=== PATIENT | female | born 1985 | race Two or more races ===

== ENCOUNTER 2017-06-11 15:17 | Outpatient (CLI) | payer OTHER ==
[~2017-06-11 15:17] MED LIST: KETO10TA2 PO; ULTRACET PO
== END 2017-06-11 15:36 | disposition home or self-care (01) ==
LOC: SONOGRAMA 15:17 → MAMO-SONO 06-17 13:15
DX: N63.20 Unspecified lump in the left breast, unspecified quadrant (principal)

== ENCOUNTER 2017-07-20 12:44 | Outpatient (CLI) | payer OTHER | END 2017-07-21 07:29 | disposition home or self-care (01) | LOC: MAMO-SONO 12:44 | DX: Z80.3 Family history of malignant neoplasm of breast (principal); N60.11 Diffuse cystic mastopathy of right breast; N60.12 Diffuse cystic mastopathy of left breast ==

== ENCOUNTER 2018-06-02 07:38 | Outpatient (CLI) | payer OTHER | END 2018-06-02 07:48 | disposition home or self-care (01) | LOC: SONOGRAMA 07:38 | DX: R10.9 Unspecified abdominal pain (principal); N18.3 Chronic kidney disease, stage 3 (moderate); R31.29 Other microscopic hematuria ==

== ENCOUNTER 2018-06-13 11:20 | Outpatient (CLI) | payer OTHER | END 2018-06-13 11:22 | disposition home or self-care (01) | LOC: RAD 11:20 | DX: M06.4 Inflammatory polyarthropathy (principal); M49.82 Spondylopathy in diseases classified elsewhere, cervical region; M15.0 Primary generalized (osteo)arthritis ==

== ENCOUNTER 2018-06-24 13:20 | Outpatient (CLI) | payer OTHER | END 2018-06-24 13:27 | disposition home or self-care (01) | LOC: SONOGRAMA 13:20 | DX: E03.8 Other specified hypothyroidism (principal); Q00-Q99 Congenital malformations, deformations and chromosomal abnormalities; I10 Essential (primary) hypertension ==

== ENCOUNTER 2020-05-15 07:24 | Outpatient (CLI) | payer OTHER | END 2020-05-15 07:41 | disposition home or self-care (01) | LOC: SONOGRAMA 07:24 | PROVIDERS: ATTEND Surgery | DX: R10.84 Generalized abdominal pain (principal); R31.29 Other microscopic hematuria; N60.11 Diffuse cystic mastopathy of right breast; N60.12 Diffuse cystic mastopathy of left breast; Z80.3 Family history of malignant neoplasm of breast ==

== ENCOUNTER 2024-05-02 11:12 | Outpatient (CLI) | payer OTHER ==
[~2024-05-02 11:12] MED LIST changes: +LABETALOL HCL200 MG; +SYNTHROID200 MCG
== END 2024-05-02 11:14 | disposition home or self-care (01) ==
LOC: MRI 11:12
PROVIDERS: ATTEND Internal Medicine
DX: M71.341 Other bursal cyst, right hand (principal); R51.9 Headache, unspecified
CPT/HCPCS: 70551

== ENCOUNTER 2024-06-12 09:40 | Outpatient (CLI) | payer OTHER ==
[2024-06-12 11:15] LABS: PH,URINE 6.5; URINE APPEARANCE CLEAR; URINE BILIRRUBIN NEGATIVE (NEGATIVE); URINE BLOOD NEGATIVE; URINE COLOR YELLOW; URINE GLUCOSE NEGATIVE (NEGATIVE); URINE KETONE NEGATIVE (NEGATIVE); URINE LEUKOCYTE NEGATIVE; URINE NITRATE NEGATIVE; URINE PROTEIN NEGATIVE (NEGATIVE); URINE RBC 16.4 uL (0.0-20.8)
[2024-06-12 11:16] LABS: URINE BACTERIA 647.3 uL (0.0-1933); URINE EPITHELIAL CELLS 13.9 uL (0.0-38.8); URINE WBC 4.2 uL (0.0-23.2)
[2024-06-12 11:30] LABS: HEMATOCRIT 36.8 % (36.0-45.00); HEMOGLOBIN 12.5 g/dL (12.0-15.00); MEAN CELL VOLUME 89.5 fL (80.00-100.00); MEAN CORPUSCULAR HEMOGLOBIN 30.5 pg (27.00-32.0); PLATELET COUNT 233 K/uL (150-450); RED BLOOD COUNT 4.11 M/uL (4.00-6.00)
[2024-06-12 11:50] LABS: INR 1.02; PARTIAL THROMBOPLASTIN TIME 37.3 SECONDS (22.0-34.0); PROTHROMBIN TIME 11.1 SECONDS (9.0-11.5)
[2024-06-12 11:58] LABS: ALBUMIN 3.9 gm/dL (3.4-5.0); BILIRUBIN TOTAL 0.71 mg/dL (0.3-1.2); CALCIUM 8.9 mg/dL (8.5-10.1); CREATININE SERUM 0.63 mg/dL (0.55-1.02); GFR 105.2; GLOBULINA 2.7 G/DL (2.4-3.5); POTASSIUM 4.27 mEq/L (3.5-5.1); TOTAL PROTEIN 6.6 gm/dL (6.4-8.2)
== END 2024-06-12 09:48 | disposition home or self-care (01) ==
LOC: RAD 09:40
PROVIDERS: ATTEND Orthopaedic Surgery Hand Surgery
DX: E11.9 Type 2 diabetes mellitus without complications (principal); E78.00 Pure hypercholesterolemia, unspecified; E78.3 Hyperchylomicronemia; D65 Disseminated intravascular coagulation [defibrination syndrome]; D66 Hereditary factor VIII deficiency; N39.0 Urinary tract infection, site not specified; Z01.810 Encounter for preprocedural cardiovascular examination; I10 Essential (primary) hypertension

== ENCOUNTER 2024-07-18 05:07 | Day surgery (SDC) | payer OTHER ==
[2024-07-06 12:40] LABS: PH,URINE 5.5 (5.0-8.0); URINE APPEARANCE Clear; URINE BACTERIA 156.6 uL (0.0-1933); URINE BILIRRUBIN Negative (NEGATIVE); URINE BLOOD Negative; URINE COLOR Yellow; URINE EPITHELIAL CELLS 3.1 uL (0.0-38.8); URINE GLUCOSE Negative (NEGATIVE); URINE KETONE Negative (NEGATIVE); URINE LEUKOCYTE Negative; URINE NITRATE Negative; URINE PROTEIN Negative (NEGATIVE); URINE RBC 3.2 uL (0.0-20.8); URINE UROBILINOGEN 0.2 E.U./dl; URINE WBC 2.6 uL (0.0-23.2)
[2024-07-06 12:45] LABS: BASO % 1.2 % (0.1-1.2); EOS # 0.17 (0.04-0.54); EOS % 2.9 % (0.7-7.0); HEMATOCRIT 34.9 % (34.1-44.9); HEMOGLOBIN 12.2 g/dL (11.2-15.7); LYMPH # 1.06 (1.18-3.74); LYMPH % 18.2 % (19.3-53.1); MEAN CORPUSCULAR HEMOGLOBIN 30.5 pg (25.6-32.2); MONO # 0.48 (0.24-0.82); MONO % 8.3 % (4.7-12.5); NEUT # 4.02 (1.56-6.13); NEUT % 69.2 % (34.0-71.1); PLATELET COUNT 282 K/uL (163-369); RED CELL DISTRIBUTION WIDTH 11.7 % (11.6-14.4)
[2024-07-06 12:50] LABS: URINE CAST 0.14 uL (0.0-1.40)
[2024-07-06 13:23] LABS: INR 1.02; PROTHROMBIN TIME 11.1 SECONDS (9.0-11.5)
[2024-07-06 13:43] LABS: ALBUMIN 4.3 gm/dL (3.4-5.0); BILIRUBIN TOTAL 0.63 mg/dL (0.3-1.2); CREATININE SERUM 0.7 mg/dL (0.55-1.02); GFR 93.16; POTASSIUM 4.31 mEq/L (3.5-5.1); TOTAL PROTEIN 7.3 gm/dL (6.4-8.2)
[2024-07-06 13:54] LABS: PARTIAL THROMBOPLASTIN TIME 40.7 SECONDS (22.0-34.0)
[~2024-07-18 05:07] MED LIST changes: +ASA81 MG PO; +FLONASE16 GM; +NIFEDIPINE20 MG
[2024-07-18] MEDS ORDERED: DESMOPRESSIN ACETATE 4 MCG/ML AMPUL IV ONE (07:30)
[2024-07-18] MEDS ORDERED: ISOPROPYL ALCOHOL 30 ML OUNCE TOP ONE (09:00)
[2024-07-18] MEDS ORDERED: CEFAZOLIN SODIUM 1,000 MG VIAL IV ONE (09:00)
[2024-07-18] MEDS ORDERED: BUPIVACAINE HCL 30 ML VIAL IJ ONE (09:15)
== END 2024-07-18 11:40 | disposition home or self-care (01) ==
LOC: CIR.AMB 05:07
PROVIDERS: ATTEND Orthopaedic Surgery Hand Surgery
DX: D21.11 Benign neoplasm of connective and other soft tissue of right upper limb, including shoulder (principal); R22.31 Localized swelling, mass and lump, right upper limb

== ENCOUNTER 2024-08-15 08:38 | Emergency (ER) | payer OTHER ==
[~2024-08-15] VITALS: Ht 149.9 cm; Wt 58.1 kg
[2024-08-15] MEDS ORDERED: ACETAMINOPHEN 500 MG GEL..CAP PO ONE ×2 (09:56→10:00)
[2024-08-15] MEDS ORDERED: MAG HYDROX/ALUMINUM HYD/SIMETH 30 ML BLIST.PACK PO ONE ×2 (09:56→10:00)
[2024-08-15] MEDS ORDERED: FAMOTIDINE/PF 20 MG/2 ML VIAL ONE (09:56)
[2024-08-15] MEDS ORDERED: FAMOTIDINE/PF 20 MG/2 ML VIAL IV PUSH ONE (10:00)
[2024-08-15] MEDS ORDERED: 0.9 % SODIUM CHLORIDE 1,000 ML IV SCH (10:00)
[2024-08-15 10:25] LABS: BASO % 0.9 % (0.1-1.2); EOS # 0.16 (0.04-0.54); EOS % 2.1 % (0.7-7.0); HEMATOCRIT 35.9 % (34.1-44.9); HEMOGLOBIN 12.6 g/dL (11.2-15.7); LYMPH # 0.93 (1.18-3.74); LYMPH % 12.2 % (19.3-53.1); MEAN CORPUSCULAR HEMOGLOBIN 29.9 pg (25.6-32.2); MONO # 0.55 (0.24-0.82); MONO % 7.2 % (4.7-12.5); NEUT # 5.89 (1.56-6.13); NEUT % 77.3 % (34.0-71.1); PLATELET COUNT 261 K/uL (163-369); RED BLOOD COUNT 4.22 M/uL (3.93-5.22); RED CELL DISTRIBUTION WIDTH 11.8 % (11.6-14.4)
[2024-08-15 10:45] LABS: URINE APPEARANCE Clear; URINE BILIRRUBIN Negative (NEGATIVE); URINE BLOOD Negative; URINE COLOR Yellow; URINE GLUCOSE Negative (NEGATIVE); URINE KETONE Negative (NEGATIVE); URINE LEUKOCYTE Negative; URINE NITRATE Negative; URINE PROTEIN Negative (NEGATIVE); URINE UROBILINOGEN 0.2 E.U./dl
[2024-08-15 10:49] LABS: URINE BACTERIA 255.6 uL (0.0-1933); URINE EPITHELIAL CELLS 5.6 uL (0.0-38.8)
[2024-08-15 10:52] LABS: URINE RBC 1.9 uL (0.0-20.8); URINE WBC 1.4 uL (0.0-23.2)
[2024-08-15 11:10] LABS: ALBUMIN 4.2 gm/dL (3.4-5.0); BILIRUBIN TOTAL 0.49 mg/dL (0.3-1.2); BILIRUBIN,CONJUGATED 0.11 mg/dL (0.0-0.2); BILIRUBIN,UNCONJUGATED 0.38 mg/dL (0.0-0.6); CALCIUM 9.3 mg/dL (8.5-10.1); CREATININE SERUM 0.65 mg/dL (0.55-1.02); GFR 101.47; GLOBULINA 3.2 G/DL (2.4-3.5); POTASSIUM 3.98 mEq/L (3.5-5.1); TOTAL PROTEIN 7.4 gm/dL (6.4-8.2)
[2024-08-15] MEDS ORDERED: TRAMADOL HCL 50 MG TABLET PO ONE (17:15)
== END 2024-08-15 18:46 | disposition home or self-care (01) ==
LOC: ER 08:38
PROVIDERS: Emergency Medicine
DX: N93.9 Abnormal uterine and vaginal bleeding, unspecified (principal); R10.13 Epigastric pain; I10 Essential (primary) hypertension; E03.8 Other specified hypothyroidism; M32.8 Other forms of systemic lupus erythematosus; Q61.3 Polycystic kidney, unspecified; D25.9 Leiomyoma of uterus, unspecified